=== PATIENT | female | born 1955 | race American Indian/Alaskan Native ===

== ENCOUNTER 2017-09-20 02:01 | Emergency (ER) | payer MEDICARE ==
[2017-09-20 02:09] VITALS: BP 107/64
== END 2017-09-20 05:21 | disposition left against medical advice (07) ==
LOC: ED 02:01
DX: H92.09 Otalgia, unspecified ear (principal); Z53.21 Procedure and treatment not carried out due to patient leaving prior to being seen by health care provider
CPT/HCPCS: 93005; 93010

== ENCOUNTER 2018-05-14 19:36 | Inpatient (IN) | payer MEDICARE ==
[2018-05-14] MEDS ORDERED: ASPIRIN PO ONE (20:19)
[2018-05-14 20:57] LABS: Hematocrit 39.9 % (30.3-42.9); Hemoglobin 12.6 gm/dl (10.1-14.3); Mean Corpuscular HGB Conc 32 % (30-34); Mean Corpuscular Hemoglobin 25 pg (28-32); Mean Corpuscular Volume 81 fl (79-97); Platelet Count 556 K/mm3 (140-440); Red Blood Count 4.95 M/mm3 (3.65-5.03); Red Cell Distribution Width 16.3 % (13.2-15.2)
--- NOTE | 2018-05-14 20:59 | Emergency Department Report ---
ED Chest Pain HPI - General Chief Complaint: Chest Pain Stated Complaint: CHEST PAIN Time Seen by Provider: 05/14/18 20:58 Source: patient, EMS Mode of arrival: Stretcher Limitations: Physical Limitation - History of Present Illness MD Complaint: chest pain -: This afternoon Onset: during rest Pain Location: substernal Pain Radiation: none Severity: severe Severity scale (0 -10): 10 Quality: heaviness, dull Consistency: constant Improves With: nothing Context: recent surgery re: diaphoresis. denies: nausea, vomting Other Symptoms: denies: cough, fever, syncope, rash Treatments Prior to Arrival: none Aspirin use within the Past 7 Days: (0) No - Related Data On Oral Contraceptives: No Home Medications Medication Instructions Recorded Confirmed Last Taken Esomeprazole Magnesium [NexIUM] 40 mg PO DAILY 10/27/13 08/06/15 08/06/15 Hydrochlorothiazide 25 mg PO DAILY 10/27/13 08/06/15 08/06/15 Simvastatin [Zocor TAB] 40 mg PO DAILY 10/27/13 08/06/15 08/06/15 Aspirin [Aspirin BABY CHEW TAB] 81 mg PO DAILY 07/31/14 08/06/15 08/06/15 Diazepam 10 mg PO BID 07/31/14 08/06/15 08/06/15 Previous Rx's Medication Instructions Recorded Last Taken Type Albuterol Sulfate [Ventolin HFA] 2 puff IH Q4H PRN #1 hfa.aer.ad 10/28/13 Rx Fluticasone Propionate [Flonase] 2 sprays NS DAILY #1 spray.susp 10/28/13 Rx Carvedilol [Coreg] 12.5 mg PO BID #60 tablet 08/10/15 Unknown Rx Allergies Allergy/AdvReac Type Severity Reaction Status Date / Time codeine AdvReac Nausea Verified 07/31/14 06:56 Heart Score - HEART Score History: Highly suspicious EKG: Non-specific Age: 45-65 Risk factors: 1-2 risk factors Troponin: 1-3x normal limit HEART Score: 6 ED Review of Systems ROS: Stated complaint: CHEST PAIN Other details as noted in HPI Comment: All other systems reviewed and negative Constitutional: denies: chills, fever Eyes: denies: eye pain ENT: denies: ear pain Respiratory: shortness of breath. denies: cough, orthopnea Cardiovascular: chest pain, palpitations, orthopnea Endocrine: no symptoms reported Gastrointestinal: denies: abdominal pain, nausea, vomiting, diarrhea Genitourinary: denies: urgency, dysuria, frequency Musculoskeletal: denies: back pain Skin: denies: rash, lesions Neurological: denies: headache, weakness, numbness Psychiatric: anxiety. denies: depression Hematological/Lymphatic: denies: easy bleeding, easy bruising ED Past Medical Hx - Past Medical History Previous Medical History?: Yes Hx Hypertension: Yes Hx Heart Attack/AMI: Yes (4 cardiac stents (last placed 2009)) Hx Arthritis: Yes Hx Psychiatric Treatment: Yes (depression) Hx Asthma: Yes - Surgical History Past Surgical History?: Yes Hx Coronary Stent: Yes (x4) Hx Appendectomy: Yes Additional Surgical History: tubal ligation, t&a, knee surgery - Social History Smoking Status: Never Smoker Substance Use Type: None - Medications Home Medications: Home Medications Medication Instructions Recorded Confirmed Last Taken Type Esomeprazole Magnesium [NexIUM] 40 mg PO DAILY 10/27/13 08/06/15 08/06/15 History Hydrochlorothiazide 25 mg PO DAILY 10/27/13 08/06/15 08/06/15 History Simvastatin [Zocor TAB] 40 mg PO DAILY 10/27/13 08/06/15 08/06/15 History Albuterol Sulfate [Ventolin HFA] 2 puff IH Q4H PRN #1 hfa.aer.ad 10/28/1307/30/14 Rx Fluticasone Propionate [Flonase] 2 sprays NS DAILY #1 spray.susp 10/28/1308/06/15 Rx Aspirin [Aspirin BABY CHEW TAB] 81 mg PO DAILY 07/31/14 08/06/15 08/06/15 History Diazepam 10 mg PO BID 07/31/14 08/06/15 08/06/15 History Carvedilol [Coreg] 12.5 mg PO BID #60 tablet 08/10/15 Unknown Rx ED Physical Exam - General Limitations: Physical Limitation General appearance: alert, in no apparent distress - Head Head exam: Present: atraumatic, normocephalic, normal inspection - Eye Eye exam: Present: normal appearance, PERRL, EOMI Pupils: Present: normal accommodation - ENT ENT exam: Present: normal exam, normal orophraynx, mucous membranes moist - Neck Neck exam: Present: normal inspection, full ROM. Absent: tenderness - Respiratory Respiratory exam: Present: normal lung sounds bilaterally. Absent: respiratory distress, wheezes, rales, rhonchi - Cardiovascular Cardiovascular Exam: Present: regular rate, normal rhythm, normal heart sounds - GI/Abdominal GI/Abdominal exam: Present: soft, normal bowel sounds, diminished bowel sounds. Absent: distended, tenderness, guarding, rebound - Rectal Rectal exam: Present: deferred - Extremities Exam Extremities exam: Present: normal inspection, full ROM, normal capillary refill - Back Exam Back exam: Present: normal inspection, full ROM. Absent: tenderness - Neurological Exam Neurological exam: Present: alert, oriented X3, CN II-XII intact - Psychiatric Psychiatric exam: Present: normal affect, normal mood - Skin Skin exam: Present: warm, dry, intact, normal color. Absent: rash ED Course Vital Signs 05/14/18 05/14/18 05/14/18 20:01 20:15 21:00 Temperature 99 F Pulse Rate 100 H 90 91 H Respiratory 25 H 25 H 18 Rate Blood Pressure 169/80 169/80 145/73 Blood Pressure 169/80 [Left] O2 Sat by Pulse 100 100 97 Oximetry 05/14/18 05/14/18 05/14/18 22:01 22:31 22:37 Temperature Pulse Rate 107 H 134 H 132 H Respiratory 39 H 38 H Rate Blood Pressure 178/87 178/87 Blood Pressure [Left] O2 Sat by Pulse 97 100 99 Oximetry 05/14/18 05/15/18 23:20 00:49 Temperature Pulse Rate 123 H Respiratory Rate Blood Pressure Blood Pressure [Left] O2 Sat by Pulse 100 Oximetry - Reevaluation(s) Reevaluation #1: 05/14/18 23:46 I discussed patient care with the hospitalist on-call Dr Mascorro. He'll admit patient for further evaluation and management. NATALIA score - Natalia Score Age > 65: (0) No Aspirin use within the Past 7 Days: (0) No 3 or more CAD Risk Factors: (0) No 2 or more Angina events in past 24 hrs: (0) No Known CAD with more than 50% Stenosis: (0) No Elevated Cardiac Markers: (1) Yes ST Deviation Greater than 0.5mm: (0) No NATALIA Score: 1 ED Medical Decision Making - Lab Data Result diagrams: 05/14/18 23:57 05/14/18 20:26 - EKG Data -: EKG Interpreted by Me EKG shows normal: sinus rhythm Rate: normal (90) - EKG Data When compared to previous EKG there are: previous EKG unavailable Interpretation: nonspecific ST-T wave marlon - Radiology Data Radiology results: report reviewed, image reviewed - Medical Decision Making Chest pain Critical Care Time: Yes Critical care time in (mins) excluding proc time.: 60 Critical care attestation.: If time is entered above; I have spent that time in minutes in the direct care of this critically ill patient, excluding procedure time. ED Disposition Clinical Impression: Difficulty breathing, NSTEMI (non-ST elevated myocardial infarction) Chest pain Qualifiers: Chest pain type: chest pain due to myocardial ischemia Ischemic chest pain type : unstable angina pectoris Qualified Code(s): I20.0 - Unstable angina CHF (congestive heart failure) Qualifiers: Heart failure type: unspecified Heart failure chronicity: acute Qualified Code( s): I50.9 - Heart failure, unspecified Disposition: DC-09 OP ADMIT IP TO THIS HOSP Is pt being admited?: Yes Does the pt Need Aspirin: Yes Condition: Fair Instructions: Chest Pain (ED) Referrals: PRIMARY CARE, [Referring] - 3-5 Days Time of Disposition: 23:49
[2018-05-14] MEDS ORDERED: NACL 0.9% 1000 ML 1,000 ML IV ONE (21:20)
[2018-05-14 21:21] LABS: BUN/Creatinine Ratio 10; Blood Urea Nitrogen 6 mg/dL (7-17); Calcium 9.1 mg/dL (8.4-10.2); Hemolysis Index 88
[2018-05-14 21:29] LABS: Basophils % (Manual) 0 % (0.0-1.8); Eosinophils % (Manual) 0 % (0.0-4.3); Total Cells Counted 100
[2018-05-14 21:31] LABS: Anisocytosis 1+; Platelet Estimate Consistent w Auto; Poikilocytosis Few
[2018-05-14 21:57] LABS: HDL Cholesterol 31 mg/dL (40-59); LDL Cholesterol,Direct 96 mg/dL (50-130)
[2018-05-14] MEDS: MORPHINE IV PRN (22:07)
--- NOTE | 2018-05-14 22:29 | XRay Report ---
FINAL REPORT EXAM: XR CHEST 1V AP HISTORY: chest pain TECHNIQUE: Single, portable chest x-ray. PRIORS: None. FINDINGS: Cardiac and mediastinal silhouette within normal limits. Lungs are hyperinflated, with probable mild interstitial change or scarring scattered bilaterally. No significant vascular congestion, focal consolidation or apparent pneumothorax. Bony thorax grossly unremarkable. IMPRESSION: 1. Findings compatible with sequelae of COPD and probable chronic interstitial lung disease. 2. No acute consolidation.
[2018-05-14] MEDS ORDERED: HEPARIN ONE (22:56)
[2018-05-14] MEDS ORDERED: HEPARIN/ 0.45% NACL-25,000 UNIT/500 ML 25,000 UNIT/500 ML BAG ONE (22:57)
--- NOTE | 2018-05-14 23:15 | Cat Scan Report ---
FINAL REPORT PROCEDURE: CT HEAD/BRAIN WO CON TECHNIQUE: Computerized tomography of the head was performed without contrast material. HISTORY: changed of condition COMPARISON: No prior studies are available for comparison. FINDINGS: Skull and scalp: Normal. Paranasal sinuses: Normal. Ventricles and subarachnoid spaces: Normal. Cerebrum: No evidence of hemorrhage, acute infarction or mass . Cerebellum and brainstem: No evidence of hemorrhage, acute infarction or mass. Vasculature: Normal. Comments: None. IMPRESSION: There is no evidence of an acute intracranial process
--- NOTE | 2018-05-14 23:22 | Cat Scan Report ---
FINAL REPORT PROCEDURE: CT ANGIO CHEST TECHNIQUE: Computerized tomographic angiography of the chest was performed after the IV injection of iodinated nonionic contrast including image processing. The image data was postprocessed using 2-dimensional multiplanar reformatted (MPR) and 3-dimensional (MIP and/or volume rendered) techniques. HISTORY: CP/SOB COMPARISON: No prior studies are available for comparison. FINDINGS: Heart and pericardium: Normal. Thoracic aorta: Mild atherosclerosis of the aorta is noted. No aneurysm or dissection.. Pulmonary vasculature: There is no evidence of pulmonary arterial emboli. Lymph nodes: No enlarged thoracic lymph nodes. Lungs: There is atelectasis and slight effusion in the right lower lung. Slight atelectasis left lower lung. Mild underlying chronic obstructive changes. The central airway is patent.. Pleural space: Mild effusion right lower lung.. Musculoskeletal structures: There is no acute osseous irregularity. Mild degenerative changes of the thoracic spine.. Upper abdominal structures: No significant abnormality. IMPRESSION: Mild COPD. Slight atelectasis bilateral lower lungs. Mild right effusion. There is no evidence of pulmonary arterial emboli.
[2018-05-14] MEDS ORDERED: LASIX ONE (23:30)
[2018-05-14] MEDS ORDERED: LASIX IV ONE (23:39)
[2018-05-14] MEDS ORDERED: HEPARIN 10,000 UNITS/10 ML IV ONE (23:40)
[2018-05-15 00:28] LABS: Hematocrit 37.7 % (30.3-42.9); Hemoglobin 12.3 gm/dl (10.1-14.3)
[2018-05-15] MEDS ORDERED: ZOFRAN ONE (00:43)
[2018-05-15 00:45] LABS: INR 0.97 (0.87-1.13)
[2018-05-15] MEDS: HEPARIN/ 0.45% NACL-25,000 UNIT/500 ML 25,000 UNIT/500 ML BAG IV SCH ×3 (00:45→23:02)
[2018-05-15 00:46] LABS: Partial Thromboplastin Time 41.2 Sec. (24.2-36.6)
[2018-05-15] MEDS ORDERED: ZOFRAN IV ONE (00:52)
[2018-05-15] MEDS ORDERED: VANCOMYCIN/NS 1 GM/250 ML 1 GM/250 ML BAG IV SCH (01:00)
[2018-05-15] MEDS ORDERED: ZOSYN/NS 4.5GM/100ML 4.5 GM/100 ML VIAL IV ONE ×2 (01:00→03:45)
[2018-05-15] MEDS ORDERED: VANCOMYCIN PHARMACY TO DOSE IV SCH (01:00)
[2018-05-15 01:09] LABS: Alanine Aminotransferase 19 units/L (7-56); Albumin 3.6 g/dL (3.9-5)
[2018-05-15] MEDS ORDERED: NITRO-BID 2% TP ONE (01:10)
[2018-05-15 01:11] LABS: Bilirubin,Direct < 0.2 mg/dL (0-0.2)
[2018-05-15] MEDS ORDERED: NITROSTAT SL PRN (01:12)
[2018-05-15] MEDS ORDERED: TYLENOL PR PRN (01:13)
[2018-05-15] MEDS ORDERED: PROVENTIL IH PRN (01:14)
[2018-05-15] MEDS: NITRO-BID 2% TP SCH ×5 (01:20→19:30)
[2018-05-15] MEDS ORDERED: VANCOMYCIN 1,750 MG in NACL 0.9% 500 ML 500 ML IV ONE (01:30)
[2018-05-15] MEDS: MORPHINE IV PRN ×3 (05:40→22:31)
[2018-05-15] MEDS ORDERED: ZOSYN/NS 3.375GM/50ML 3.375 GM/50 ML BAG IV SCH ×3 (06:00→10:00)
[2018-05-15] MEDS: ZOFRAN IV PRN (06:35)
[2018-05-15] MEDS: SOLU-Medrol IV SCH ×3 (06:44→21:56)
--- NOTE | 2018-05-15 06:50 | History and Physical Report ---
CHIEF COMPLAINT: Chest pain. HISTORY OF PRESENT ILLNESS: The patient is a 63-year-old female who states she has been having haziness and dullness in the precordial area and substernal area. Pain was constant and did not radiate, was associated with shortness of breath and diaphoresis. Pain was not affected by movement or deep breath. The patient was worried because she just had right knee surgery done and wondered whether that it is associated with chest pain. There was no history of fever or cough. The patient was evaluated and presented for admission. PAST MEDICAL HISTORY: Pertinent for COPD. Also, the patient has past history of hypertension, coronary artery disease. The patient had past medical history of arthritis, depression, and asthma. PAST SURGICAL HISTORY: Pertinent for stent placement x 4, appendectomy, tubal ligation, and right knee surgery. FAMILY HISTORY: Noncontributory. SOCIAL HISTORY: The patient does not smoke, does not drink alcohol, and does not use illicit drugs. MEDICATIONS: The patient is on Nexium 40 mg by mouth daily, hydrochlorothiazide 25 mg by mouth daily, Zocor 40 mg by mouth daily, albuterol inhaler 2 puffs every 4 hours as needed for shortness of breath, Flonase 2 sprays nasally daily, aspirin 81 mg chewable by mouth daily, diazepam 10 mg twice daily, and Coreg 12.5 mg by mouth twice daily. ALLERGIES: The patient is allergic to CODEINE. REVIEW OF SYSTEMS: CONSTITUTIONAL: There is no fever, no chills, and diaphoresis present. HEENT: There is no headache or sore throat. CARDIOVASCULAR SYSTEM: Chest pain is noted. No orthopnea. RESPIRATORY SYSTEM: Shortness of breath is present. No cough. GASTROINTESTINAL SYSTEM: There is no nausea, no vomiting, no abdominal pain, diarrhea or constipation. NEUROLOGICAL SYSTEM: There is no numbness, no dizziness, no altered mental status. MUSCULOSKELETAL SYSTEM: Pain in the right knee area where the patient was surgery noted. No joint swelling. DERMATOLOGICAL SYSTEM: There is no skin rash or itching. GENITOURINARY SYSTEM: There is no dysuria, hematuria, or flank pain. Rest of system review is normal. PHYSICAL EXAMINATION: GENERAL: At the time of exam, the patient was found to be alert, oriented x 3, and in mild distress due to shortness of breath. VITAL SIGNS: The patient's vital signs shows normal temperature, with pulse of 132, respiration 38, blood pressure 178/87, O2 sat of 99-100% on oxygen. HEENT: Exam showed pupils to be equal, round, and reactive to light and accommodation. Extraocular muscles intact. NECK: Supple with no JVD or carotid bruit. CARDIOVASCULAR SYSTEM: Show normal first and second heart sounds with no gallops or murmurs. RESPIRATORY SYSTEM: Show good air entry on both sides of the lung while the patient was on BiPAP. GASTROINTESTINAL SYSTEM: Show abdomen to be full, soft, and nontender with no organomegaly or rigidity. NEUROLOGIC: Exam shows no focal deficit. MUSCULOSKELETAL SYSTEM: Show tenderness in the right knee area where the patient just had recent surgery. DERMATOLOGICAL SYSTEM: Show surgical scar on the right knee area. Otherwise, no rashes were seen elsewhere. GENITOURINARY SYSTEM: Show no costovertebral angle tenderness. PERTINENT LABORATORY DATA AND IMAGING STUDIES: The patient has CBC done with elevated white count of 18,200, normal hemoglobin and normal hematocrit with the elevated platelet of 594,000, CBC differential show elevated segmented neutrophil of 88% and coagulation studies show elevated D-dimer of 1335.9. The patient's ABG showed low pH of 7.34, normal pCO2 of 42.3, low pO2 of 75, with O2 sat of 94%, on FiO2 of 32. The patient's chemistry shows slight decrease in sodium of 136, normal potassium, normal chloride, with unremarkable renal function test. The patient's troponin levels show elevated value of 0.147. Brain natriuretic peptide level is high with a value of 6331. Rest of chemistry is unremarkable. IMAGING STUDIES: The patient had CT angiogram of the chest done that shows mild COPD with slight atelectasis, bilateral lower lung and mild right effusion. Also, the patient has CT of the head done, without contrast that showed there is no evidence of an acute intracranial process and the patient had chest x-ray done that shows findings compatible with the sequela of COPD and probable chronic interstitial lung disease. There is no acute consolidation found. DIAGNOSES: 1. Non-ST elevation myocardial infarction. 2. Chronic obstructive pulmonary disease exacerbation. 3. Congestive heart failure exacerbation. PLAN: 1. The patient will be admitted to telemetry and will continue intravenous heparin started in the Emergency Room. The patient will have cardiac enzymes involving troponin, total CK, and CK-MB checked every 6 hours x 2 more levels. The patient will remain nothing by mouth until seen by the Weatherstrip Machine Operator and will have Cardiology consult for non-ST segment elevation myocardial infarction and congestive heart failure exacerbation. The patient will have 2D echo done this morning because of history of congestive heart failure exacerbation. 2. The patient will be on albuterol nebulizers every 6 hours as needed for shortness of breath and will be on intravenous Solu-Medrol 60 mg every 8 hours. 3. The patient will continue intravenous Zosyn 3.375 g every 8 hours and intravenous vancomycin with pharmacy to dose as ordered by the Emergency Room physician. 4. The patient will be on nitro paste 1-inch to anterior chest wall four times a day and will also be on sublingual nitroglycerin 0.4 mg every 5 minutes as needed for chest pain. 5. The patient will be on aspirin 325 mg by mouth daily and will be on intravenous Lasix 40 mg daily. 6. The patient will continue intravenous morphine 4 mg every 4 hours as ordered by the Emergency Room physician. 7. The patient will be on intravenous Zofran 4 mg every 6 hours as needed for nausea and vomiting and we will continue bilevel positive airway pressure treatment started in the Emergency Room. JOB# [id number] [facility]
[2018-05-15 07:02] LABS: Creatine Kinase MB 9.5 ng/mL (0.0-4.0)
[2018-05-15] MEDS: ASPIRIN PO SCH (10:14)
[2018-05-15] MEDS: LASIX IV SCH (10:14)
--- NOTE | 2018-05-15 10:49 | Consultation ---
History of Present Illness Consult date: 05/15/18 Consult reason: chest pain History of present illness: This is a 63 year old woman who presented with complaints of chest pain. She associates chest pain with shortness of breath and palpitations. There are no aggravating or relieving factors. Patient denies fever, coughs and congestion. Of note, patient reports a week ago she underwent right knee surgery. Chest CTA reports no evidence of pulmonary embolism. Chest x-ray reports chronic interstitial lung disease. Laboratory studies shows a WBC of 18,200. Cardiac enzymes were also measured which shows CKMB of 9.5 with a relative index of 5.9. Troponin of 0.161. 12 lead ECG shows a sinus rhythm. Patient is followed by her primary kettle loader on a regular basis. She has a history of 2 vessel coronary artery disease. A cardiac catheterization 3 years ago showed a patent stents in the proximal LAD and mid right coronary artery. Ejection fraction 50%. More recently, as part of her pre-operative cardiac workup, patient had a treadmill stress test that is documented as negative. Patient exercised greater than 6 minutes of jes protocol. Medications and Allergies Allergies Allergy/AdvReac Type Severity Reaction Status Date / Time codeine AdvReac Nausea Verified 07/31/14 06:56 Home Medications Medication Instructions Recorded Confirmed Last Taken Type Hydrochlorothiazide 25 mg PO DAILY 10/27/13 05/15/18 08/06/15 History Simvastatin [Zocor TAB] 40 mg PO DAILY 10/27/13 05/15/18 08/06/15 History Aspirin [Aspirin BABY CHEW TAB] 81 mg PO DAILY 07/31/14 05/15/18 08/06/15 History Diazepam 5 mg PO BID 07/31/14 05/15/18 08/06/15 History Metoprolol Xl [Metoprolol 100 mg PO QDAY 05/15/18 05/15/18 Unknown History SUCCINATE ER TAB] Omeprazole 40 mg PO DAILY 05/15/18 05/15/18 Unknown History Active Meds: Active Medications Acetaminophen (Tylenol) 650 mg UT Q4H PRN PRN Reason: Headache Albuterol (Proventil) 2.5 mg IH Q6HRT PRN PRN Reason: Shortness Of Breath Aspirin (Aspirin) 325 mg PO QDAY [facility] Last Admin: 05/15/18 10:14 Dose: Not Given Furosemide (Lasix) 40 mg IV DAILY [facility] Last Admin: 05/15/18 10:14 Dose: Not Given Heparin Sodium/Sodium Chloride (Heparin/ 0.45% Nacl-25,000 Unit/500 Ml) 25,000 unit in 500 mls @ 20 mls/hr IV TITRATE [facility]; Protocol Last Admin: 05/15/18 08:19 Dose: 1,150 units/hr, 23 mls/hr Vancomycin HCl 1,250 mg/ (Sodium Chloride) 275 mls @ 166.667 mls/hr IV Q12H [facility] Piperacillin Sod/Tazobactam Sod (Zosyn/Ns 3.375gm/50ml) 3.375 gm in 50 mls @ 100 mls/hr IV Q8H [facility] Last Admin: 05/15/18 10:31 Dose: Not Given Methylprednisolone Sodium Succinate (Solu-Medrol) 60 mg IV Q8HR [facility] Last Admin: 05/15/18 06:44 Dose: 60 mg Morphine Sulfate (Morphine) 4 mg IV Q4H PRN PRN Reason: Pain, Moderate (4-6) Last Admin: 05/15/18 10:28 Dose: 4 mg Nitroglycerin (Nitrostat) 0.4 mg SL .Q5MIN PRN PRN Reason: Chest Pain Nitroglycerin (Nitro-Bid 2%) 1 inch TP QIDNTG [facility]; Protocol Last Admin: 05/15/18 10:32 Dose: 1 inch Ondansetron HCl (Zofran) 4 mg IV Q6H PRN PRN Reason: Nausea And Vomiting Last Admin: 05/15/18 06:35 Dose: 4 mg Vancomycin HCl (Vancomycin Pharmacy To Dose) 1 each IV PKCONSULT [facility] Physical Examination Vital Signs Pulse Resp BP Pulse Ox 100 H 25 H 169/80 100 05/14/18 20:01 05/14/18 20:01 05/14/18 20:01 05/14/18 20:01 General appearance: no acute distress HEENT: Positive: PERRL Cardiac: Positive: Reg Rate and Rhythm Lungs: Positive: Decreased Breath Sounds Neuro: Positive: Grossly Intact Extremities: Absent: edema Results 05/14/18 23:57 05/14/18 20:26 Cardiac Enzymes 05/14/18 05/15/18 Range/Units 23:55 06:20 AST 20 (5-40) units/L CK-MB (CK-2) 9.5 H (0.0-4.0) ng/mL Coagulation 05/14/18 Range/Units 23:57 PT 13.4 (12.2-14.9) Sec. INR 0.97 (0.87-1.13) APTT 41.2 H (24.2-36.6) Sec. Lipids 05/14/18 Range/Units 20:26 Triglycerides 132 (2-149) mg/dL Cholesterol 149 (50-199) mg/dL HDL Cholesterol 31 L (40-59) mg/dL Cholesterol/HDL Ratio 4.80 % CBC 05/14/18 05/14/18 Range/Units 20:26 23:57 WBC 18.2 H (4.5-11.0) K/mm3 RBC 4.95 (3.65-5.03) M/mm3 Hgb 12.6 12.3 (10.1-14.3) gm/dl Hct 39.9 37.7 (30.3-42.9) % Plt Count 556 H 594 H (140-440) K/mm3 Comprehensive Metabolic Panel 05/14/18 05/14/18 Range/Units 20:26 23:55 Sodium 136 L (137-145) mmol/L Potassium 4.7 (3.6-5.0) mmol/L Chloride 101.3 (98-107) mmol/L Carbon Dioxide 17 L (22-30) mmol/L BUN 6 L (7-17) mg/dL Creatinine 0.6 L (0.7-1.2) mg/dL Glucose 108 H (65-100) mg/dL Calcium 9.1 (8.4-10.2) mg/dL Direct Bilirubin < 0.2 (0-0.2) mg/dL Indirect Bilirubin 0.1 mg/dL AST 20 (5-40) units/L ALT 19 (7-56) units/L Alkaline Phosphatase 225 H (35-129) units/L Total Protein 7.4 (6.3-8.2) g/dL Albumin 3.6 L (3.9-5) g/dL Assessment and Plan Chest pain CTA negative for PE Recent right knee surgery Hx of CAD Elevate troponin Hypertension
[2018-05-15] MEDS: VANCOMYCIN 1,250 MG in NACL 0.9% 250ML 250 ML IV SCH (11:30)
--- NOTE | 2018-05-15 13:03 | Event Note ---
Date: 05/15/18 63-year-old woman who is status post right knee surgery done a week ago, presented to the hospital with atypical chest pain. EKG on presentation was sinus rhythm with no acute ischemic changes. Laboratory exam was a white count of 18,000, CPK was normal at 161 but isolated mild troponin rise of 0.16. D- dimer was also elevated at 1335. A chest CT angiogram in the emergency room reported no evidence of pulmonary embolism. Cardiac consultation was requested for further chest pain assessment and the mild troponin elevation. The patient has an extensive artery disease history. A cardiac catheterization done 2-1/2 years ago August 2015, showed widely patent stents in the proximal LAD and mid right coronary artery, otherwise no significant residual lesions. Left ventricular ejection fraction was normal at 50%. Prior to her current surgery, she underwent preoperative cardiac assessment with a regular exercise ECG test reported negative at 6 minutes of Ba protocol exercise. Today, she underwent an echocardiogram which showed a severe dilated cardiomyopathy with left ventricular systolic ejection fraction at 20%, significantly reduced from 2-1/2 years ago. Also significantly, the right ventricle was also dilated and contained a small mobile echogenic mass at the apex very suspicious for a thrombus. Recommendations: Clinical presentation of atypical chest pain one week following knee surgery, with finding of a possible right ventricular thrombosis, is consistent with acute venous thromboembolism. Recommend full anticoagulation therapy, and bedside venous Doppler to assess for more proximal venous thrombosis. The etiology and chronicity of the left ventricular systolic dysfunction is uncertain, once she is stable with regards to the acute venous thromboembolism, further cardiac and coronary assessment may be indicated. We will initiate treatment with afterload reducing agents, beta blockers and oral antiplatelet therapy.
[2018-05-15 13:20] LABS: Creatine Kinase MB 9.9 ng/mL (0.0-4.0)
[2018-05-15] MEDS: ZESTRIL PO SCH (14:32)
[2018-05-15] MEDS: TOPROL XL PO SCH (14:32)
--- NOTE | 2018-05-15 16:11 | Event Note ---
Date: 05/15/18 Patient is 63 yo presents with chest pain. She had recent right knee surgery. cardiology following. Continue current management.
[2018-05-15] MEDS: ZOSYN/NS 3.375GM/50ML 3.375 GM/50 ML BAG IV SCH (21:55)
[2018-05-16] MEDS: VANCOMYCIN 1,250 MG in NACL 0.9% 250ML 250 ML IV SCH ×2 (00:01→12:44)
[2018-05-16 05:55] LABS: Hematocrit 37.6 % (30.3-42.9); Hemoglobin 11.9 gm/dl (10.1-14.3)
[2018-05-16] MEDS: ZOSYN/NS 3.375GM/50ML 3.375 GM/50 ML BAG IV SCH ×3 (05:58→22:33)
[2018-05-16] MEDS: SOLU-Medrol IV SCH ×3 (05:59→22:34)
[2018-05-16] MEDS: NITRO-BID 2% TP SCH ×4 (06:01→17:57)
--- NOTE | 2018-05-16 08:41 | Progress Note ---
Assessment and Plan Assessment and plan: Chest pain with elevated Troponin maybe NSTEMI or Unstable angina. cardiology following. On Aspirin, Plavix, heparin drip, Metoprolol Coronary artery disease s/p stents. cardiac thrombus in right ventricle Started on Heparin drip Hypertension. Monitor BP Hyponatremia COPD exacerbation. Continue solumedrol iv Leukocytosis. Blood cultures drawn, no fever, Empiric antibiotics until Sepsis ruled out Repeat CBC Asthma Obesity. I counseled her on importance of losing weight. DVT prophylaxis. On Heparin drip. Recent right knee replacement Full code status. History Interval history: Patient presented with chest pain, Less chest pain Hospitalist Physical - Physical exam Narrative exam: GEN:Not in acute distress,obese HEENT: Normocephalic, atraumatic, Neck: supple, No JVD Lungs:Clear to auscultation bilaterally, no crackles, no wheeze Heart:S1 and S2 reg, no murmurs, rubs or gallop Abd:soft, NT, non-distended, Normal BS Ext: No edema, clubbing or cyanosis Neuro:Awake,alert,oriented x 3, no focal neurological signs Psych: Normal mood - Constitutional Vitals: Temp Pulse Resp BP Pulse Ox 99.2 F 80 20 112/60 98 05/16/18 04:35 05/16/18 06:01 05/16/18 05:00 05/16/18 06:01 05/16/18 08:00 General appearance: Present: no acute distress, obese Results - Labs CBC & Chem 7: 05/17/18 04:17 05/17/18 04:17 Labs: Laboratory Last Values WBC 18.2 K/mm3 (4.5-11.0) H 05/14/18 20:26 RBC 4.95 M/mm3 (3.65-5.03) 05/14/18 20:26 Hgb 11.9 gm/dl (10.1-14.3) 05/16/18 05:10 Hct 37.6 % (30.3-42.9) 05/16/18 05:10 MCV 81 fl (79-97) 05/14/18 20:26 MCH 25 pg (28-32) L 05/14/18 20:26 MCHC 32 % (30-34) 05/14/18 20:26 RDW 16.3 % (13.2-15.2) H 05/14/18 20:26 Plt Count 542 K/mm3 (140-440) H 05/16/18 05:10 Add Manual Diff Complete 05/14/18 20: Total Counted 100 05/14/18 20:26 Seg Neuts % (Manual) 88.0 % (40.0-70.0) H 05/14/18 20:26 Band Neutrophils % 0 % 05/14/18 20:26 Lymphocytes % (Manual) 6.0 % (13.4-35.0) L 05/14/18 20:26 Reactive Lymphs % (Man) 0 % 05/14/18 20:26 Monocytes % (Manual) 6.0 % (0.0-7.3) 05/14/18 20:26 Eosinophils % (Manual) 0 % (0.0-4.3) 05/14/18 20:26 Basophils % (Manual) 0 % (0.0-1.8) 05/14/18 20:26 Metamyelocytes % 0 % 05/14/18 20:26 Myelocytes % 0 % 05/14/18 20:26 Promyelocytes % 0 % 05/14/18 20:26 Blast Cells % 0 % 05/14/18 20:26 Nucleated RBC % Not Reportable 05/14/18 20: Seg Neutrophils # Man 16.0 K/mm3 (1.8-7.7) H 05/14/18 20:26 Band Neutrophils # 0.0 K/mm3 05/14/18 20:26 Lymphocytes # (Manual) 1.1 K/mm3 (1.2-5.4) L 05/14/18 20:26 Abs React Lymphs (Man) 0.0 K/mm3 05/14/18 20:26 Monocytes # (Manual) 1.1 K/mm3 (0.0-0.8) H 05/14/18 20:26 Eosinophils # (Manual) 0.0 K/mm3 (0.0-0.4) 05/14/18 20:26 Basophils # (Manual) 0.0 K/mm3 (0.0-0.1) 05/14/18 20:26 Metamyelocytes # 0.0 K/mm3 05/14/18 20:26 Myelocytes # 0.0 K/mm3 05/14/18 20:26 Promyelocytes # 0.0 K/mm3 05/14/18 20:26 Blast Cells # 0.0 K/mm3 05/14/18 20:26 WBC Morphology Not Reportable 05/14/18 20:26 Hypersegmented Neuts Not Reportable 05/14/18 20:26 Hyposegmented Neuts Not Reportable 05/14/18 20:26 Hypogranular Neuts Not Reportable 05/14/18 20:26 Smudge Cells Not Reportable 05/14/18 20:26 Toxic Granulation Not Reportable 05/14/18 20:26 Toxic Vacuolation Not Reportable 05/14/18 20:26 Dohle Bodies Not Reportable 05/14/18 20:26 Pelger-Huet Anomaly Not Reportable 05/14/18 20:26 Octavia Rods Not Reportable 05/14/18 20:26 Platelet Estimate Consistent w auto 05/14/18 20:26 Clumped Platelets Not Reportable 05/14/18 20:26 Plt Clumps, EDTA Not Reportable 05/14/18 20:26 Large Platelets Not Reportable 05/14/18 20:26 Giant Platelets Not Reportable 05/14/18 20:26 Platelet Satelliting Not Reportable 05/14/18 20:26 Plt Morphology Comment Not Reportable 05/14/18 20:26 RBC Morphology Not Reportable 05/14/18 20:26 Dimorphic RBCs Not Reportable 05/14/18 20:26 Polychromasia Not Reportable 05/14/18 20:26 Hypochromasia Not Reportable 05/14/18 20:26 Poikilocytosis Few 05/14/18 20:26 Anisocytosis 1+ 05/14/18 20:26 Microcytosis Not Reportable 05/14/18 20:26 Macrocytosis Not Reportable 05/14/18 20:26 Spherocytes Not Reportable 05/14/18 20:26 Pappenheimer Bodies Not Reportable 05/14/18 20:26 Sickle Cells Not Reportable 05/14/18 20:26 Target Cells Not Reportable 05/14/18 20:26 Tear Drop Cells Not Reportable 05/14/18 20:26 Ovalocytes Not Reportable 05/14/18 20:26 Helmet Cells Not Reportable 05/14/18 20:26 Chanel-[place] Bodies Not Reportable 05/14/18 20:26 [place] Rings Not Reportable 05/14/18 20:26 Eloisa Cells Not Reportable 05/14/18 20:26 Bite Cells Not Reportable 05/14/18 20:26 Crenated Cell Not Reportable 05/14/18 20:26 Elliptocytes Not Reportable 05/14/18 20:26 Acanthocytes (Spur) Not Reportable 05/14/18 20:26 Rouleaux Not Reportable 05/14/18 20:26 Hemoglobin C Crystals Not Reportable 05/14/18 20:26 Schistocytes Not Reportable 05/14/18 20:26 Malaria parasites Not Reportable 05/14/18 20:26 Layo Bodies Not Reportable 05/14/18 20:26 Hem Pathologist Commnt No 05/14/18 20:26 PT 13.4 Sec. (12.2-14.9) 05/14/18 23:57 INR 0.97 (0.87-1.13) 05/14/18 23:57 APTT 41.2 Sec. (24.2-36.6) H 05/14/18 23:57 D-Dimer 1335.99 ng/mlDDU (0-234) H 05/14/18 21:54 Heparin Anti-Xa Level < 0.10 U.I./ml (0.3-0.7) L 05/16/18 05:10 POC ABG pH 7.343 (7.35-7.45) L 05/14/18 22:36 POC ABG pCO2 42.6 (35-45) 05/14/18 22:36 POC ABG pO2 75 (80-105) L 05/14/18 22:36 POC ABG HCO3 23.1 05/14/18 22:36 POC ABG Total CO2 24 05/14/18 22:36 POC ABG O2 Sat 94 05/14/18 22:36 POC ABG Base Excess -3 05/14/18 22:36 FiO2 32 % 05/14/18 22:36 Sodium 136 mmol/L (137-145) L 05/14/18 20:26 Potassium 4.7 mmol/L (3.6-5.0) 05/14/18 20:26 Chloride 101.3 mmol/L (98-107) 05/14/18 20:26 Carbon Dioxide 17 mmol/L (22-30) L 05/14/18 20:26 Anion Gap 22 mmol/L 05/14/18 20:26 BUN 6 mg/dL (7-17) L 05/14/18 20:26 Creatinine 0.6 mg/dL (0.7-1.2) L 05/14/18 20:26 Estimated GFR > 60 ml/min 05/14/18 20:26 BUN/Creatinine Ratio 10 % 05/14/18 20:26 Glucose 108 mg/dL (65-100) H 05/14/18 20:26 POC Glucose 138 (70-105) H 05/16/18 06:04 Calcium 9.1 mg/dL (8.4-10.2) 05/14/18 20:26 Total Bilirubin 0.30 mg/dL (0.1-1.2) 05/14/18 23:55 Direct Bilirubin < 0.2 mg/dL (0-0.2) 05/14/18 23:55 Indirect Bilirubin 0.1 mg/dL 05/14/18 23:55 AST 20 units/L (5-40) 05/14/18 23:55 ALT 19 units/L (7-56) 05/14/18 23:55 Alkaline Phosphatase 225 units/L (35-129) H 05/14/18 23:55 Total Creatine Kinase 179 units/L (30-135) H 05/15/18 12:26 CK-MB (CK-2) 9.9 ng/mL (0.0-4.0) H 05/15/18 12:26 CK-MB (CK-2) Rel Index 5.5 (0-4) H 05/15/18 12:26 Troponin T 0.106 ng/mL (0.00-0.029) H* D 05/15/18 12:26 NT-Pro-B Natriuret Pep 6331 pg/mL (0-900) H 05/14/18 20:26 Total Protein 7.4 g/dL (6.3-8.2) 05/14/18 23:55 Albumin 3.6 g/dL (3.9-5) L 05/14/18 23:55 Albumin/Globulin Ratio 0.9 % 05/14/18 23:55 Triglycerides 132 mg/dL (2-149) 05/14/18 20:26 Cholesterol 149 mg/dL (50-199) 05/14/18 20:26 LDL Cholesterol Direct 96 mg/dL (50-130) 05/14/18 20:26 HDL Cholesterol 31 mg/dL (40-59) L 05/14/18 20:26 Cholesterol/HDL Ratio 4.80 % 05/14/18 20:26
--- NOTE | 2018-05-16 08:47 | Progress Note ---
<RICHARD VERDUGO - Last Filed: 05/16/18 09:00> Assessment and Plan RV Apical thrombus - on IV heparin no evidence of DVT via venous duplex CTA negative for PE Cardiomyopathy, uncertain duration EF reduced to 15-20% by echo this admission Recent right knee surgery Hx of CAD [facility] 2014: patient prox LAD and mid RCA stents,EF 50%. Elevate troponin Hypertension Subjective Date of service: 05/16/18 Interval history: Patient has no complaints. She denies chest pain. Objective Vital Signs Temp Pulse Pulse Resp BP BP Pulse Ox 05/16/18 08:00 98 05/16/18 06:01 80 112/60 05/16/18 05:00 20 96 05/16/18 04:35 99.2 F 97 H 15 109/66 97 05/16/18 01:00 20 96 05/16/18 00:00 99.0 F 94 H 13 111/72 99 05/15/18 22:00 99 H 05/15/18 21:08 99 05/15/18 21:00 20 96 05/15/18 20:00 99.0 F 106 H 18 120/77 99 05/15/18 19:30 105 H 122/80 05/15/18 19:09 95 H 17 105/56 97 05/15/18 16:00 99.0 F 05/15/18 13:07 106 H 20 95 05/15/18 11:07 95 05/15/18 10:32 120 H 143/91 05/15/18 10:00 96 H 20 143/91 96 05/15/18 09:28 97 05/15/18 09:07 111 H 95 - Physical Examination General: No Apparent Distress HEENT: Positive: PERRL Cardiac: Positive: Reg Rate and Rhythm Lungs: Positive: Decreased Breath Sounds Neuro: Positive: Grossly Intact Extremities: Absent: edema - Labs and Meds Cardiac Enzymes 05/15/18 Range/Units 12:26 CK-MB (CK-2) 9.9 H (0.0-4.0) ng/mL CBC 05/16/18 Range/Units 05:10 Hgb 11.9 (10.1-14.3) gm/dl Hct 37.6 (30.3-42.9) % Plt Count 542 H (140-440) K/mm3 <ABDIAS ALFARO - Last Filed: 05/16/18 10:05> Assessment and Plan Patient seen and examined Patient denies chest pain or shortness of breath this morning 2D echo reviewed showing severe LV systolic dysfunction with regional wall motion abnormalities consistent with coronary artery disease. There is a prominent anterior papillary muscle in the right ventricle. No evidence of RV clot. CT chest is negative for PE. LE venous doppler negative for DVT Continue IV heparin and schedule for coronary angiography in am (patient already ate full breakfast tray this morning) Objective Vital Signs Temp Pulse Pulse Resp BP BP Pulse Ox 05/16/18 09:00 101 H 20 99 05/16/18 08:00 97.3 F L 98 05/16/18 06:01 80 112/60 05/16/18 05:00 20 96 05/16/18 04:35 99.2 F 97 H 15 109/66 97 05/16/18 01:00 20 96 05/16/18 00:00 99.0 F 94 H 13 111/72 99 05/15/18 22:00 99 H 05/15/18 21:08 99 05/15/18 21:00 20 96 05/15/18 20:00 99.0 F 106 H 18 120/77 99 05/15/18 19:30 105 H 122/80 05/15/18 19:09 95 H 17 105/56 97 05/15/18 16:00 99.0 F 05/15/18 13:07 106 H 20 95 05/15/18 11:07 95 05/15/18 10:32 120 H 143/91 - Labs and Meds Cardiac Enzymes 05/15/18 Range/Units 12:26 CK-MB (CK-2) 9.9 H (0.0-4.0) ng/mL CBC 05/16/18 Range/Units 05:10 Hgb 11.9 (10.1-14.3) gm/dl Hct 37.6 (30.3-42.9) % Plt Count 542 H (140-440) K/mm3
[2018-05-16] MEDS ORDERED: NACL 0.9% 500 ML 500 ML IV SCH (11:00)
[2018-05-16] MEDS: LASIX IV SCH (11:24)
[2018-05-16] MEDS: ASPIRIN PO SCH (11:24)
[2018-05-16] MEDS: TOPROL XL PO SCH (11:25)
[2018-05-16] MEDS: ZESTRIL PO SCH (11:27)
[2018-05-16] MEDS ORDERED: DIAZEPAM 5 MG PO SCH (13:15)
[2018-05-16] MEDS ORDERED: NON-FORMULARY (Simvastatin 40 MG) PO SCH (13:15)
[2018-05-16] MEDS: MORPHINE IV PRN ×2 (14:33→22:50)
[2018-05-16] MEDS: HEPARIN/ 0.45% NACL-25,000 UNIT/500 ML 25,000 UNIT/500 ML BAG IV SCH (17:56)
[2018-05-16] MEDS: PRAVACHOL PO SCH (22:33)
[2018-05-16] MEDS: VALIUM PO SCH (22:34)
[2018-05-17] MEDS: VANCOMYCIN 1,250 MG in NACL 0.9% 250ML 250 ML IV SCH (00:17)
[2018-05-17 01:49] LABS: BUN/Creatinine Ratio 24; Blood Urea Nitrogen 22 mg/dL (7-17); Calcium 8.5 mg/dL (8.4-10.2); Hemolysis Index 142
[2018-05-17 05:10] LABS: Hematocrit 34.7 % (30.3-42.9); Hemoglobin 11.3 gm/dl (10.1-14.3); Mean Corpuscular HGB Conc 33 % (30-34); Mean Corpuscular Volume 79 fl (79-97); Platelet Count 508 K/mm3 (140-440); Red Blood Count 4.39 M/mm3 (3.65-5.03); Red Cell Distribution Width 16.2 % (13.2-15.2)
[2018-05-17 05:27] LABS: BUN/Creatinine Ratio 24; Blood Urea Nitrogen 22 mg/dL (7-17); Calcium 8.4 mg/dL (8.4-10.2); Hemolysis Index 29
[2018-05-17 05:34] LABS: Mean Corpuscular Hemoglobin 26 pg (28-32)
[2018-05-17] MEDS: SOLU-Medrol IV SCH ×3 (05:42→22:11)
[2018-05-17] MEDS: ZOSYN/NS 3.375GM/50ML 3.375 GM/50 ML BAG IV SCH ×2 (05:42→22:14)
[2018-05-17] MEDS: NITRO-BID 2% TP SCH ×2 (05:53→18:51)
[2018-05-17 07:27] LABS: INR 0.96 (0.87-1.13)
[2018-05-17 07:34] LABS: Partial Thromboplastin Time 62.7 Sec. (24.2-36.6)
[2018-05-17] MEDS ORDERED: HEPARIN/NS 5000 UNIT/500ML(CATH LAB) 1,000 ML IR ONE (10:44)
[2018-05-17] MEDS ORDERED: SUBLIMAZE ONE (10:45)
[2018-05-17] MEDS ORDERED: NITROGLYCERIN SYRINGE 3 ML ONE (10:45)
[2018-05-17] MEDS ORDERED: XYLOCAINE 2% INFILTRATI ONE (10:45)
[2018-05-17] MEDS ORDERED: VERSED ONE (10:45)
[2018-05-17] MEDS ORDERED: ECOTRIN PO ONE ×2 (10:54→10:58)
[2018-05-17] MEDS ORDERED: NACL 0.9% 500 ML 500 ML ONE ×2 (11:00→11:58)
[2018-05-17] MEDS ORDERED: NACL 0.9% 50 ML ONE (11:34)
[2018-05-17] MEDS: HEPARIN 10,000 UNITS/10 ML ONE ×3 (11:40→12:25)
[2018-05-17] MEDS ORDERED: ZOFRAN ONE ×2 (12:33→13:47)
[2018-05-17] MEDS ORDERED: PLAVIX ONE (12:33)
[2018-05-17] MEDS ORDERED: ALUM-MAG HYDROX-SIMETH 200-200-20MG/5ML ONE (12:44)
--- NOTE | 2018-05-17 12:58 | Cardiac Catherization Report ---
CARDIAC CATHETERIZATION AND CORONARY ANGIOPLASTY REASON FOR PROCEDURE: The patient is a 63-year-old woman with a history of 2-vessel coronary artery disease, status post previous coronary stents in the LAD and right coronary arteries. She presented to the hospital at this time, 1 week following knee surgery with symptoms of chest pain and shortness of breath. We found a severe global dilated cardiomyopathy with left ventricular ejection fraction estimated at 15%-20% on echocardiogram. Based on the finding of severe deterioration of left ventricular function from previous assessments, she was recommended for a cardiac catheterization. PROCEDURES: 1. Left heart catheterization. 2. Selective left and right coronary angiography. 3. Left ventricle angiography. 4. Fractional flow reserve assessment of the right coronary artery. 5. Coronary angioplasty and stenting of the right coronary artery. 6. Sedation time, start 11:22, end 12:20. The patient was prepped and draped in a sterile fashion after informed consent. The right femoral artery was entered using Seldinger technique followed by placement of a 6-Ind[place] sheath. Selective left and right coronary angiography was performed using #4 right and left Crista catheters. A pigtail catheter was used for left ventricle angiography. The angiograms were reviewed. CORONARY ANGIOGRAPHY: Left ventricle end-diastolic pressure was 35, following coronary angiography. Ascending aortic pressure was 152/72. There was no significant pressure gradient on pullback across the aortic valve. The left main coronary artery was free of significant disease. A stent was visible in the proximal to mid LAD. The stented segment was widely patent. A small-caliber diagonal branch, which originated from the stented segment, contained mild ostial compromise. Otherwise, no significant residual lesions were noted in the left anterior descending system. The circumflex artery and its obtuse marginal branches contained mild luminal irregularities. The right coronary artery was dominant. This vessel also contained a stent in its mid segment. There was diffuse, in-stent restenosis of the distal third of the stent. On multiple angiographic views, the severity was about 70%. The left ventricle was moderately dilated. There was moderate left ventricular systolic dysfunction with ejection fraction estimated at 35%. There was global hypokinesis, with relative sparing of the basal segments of the left ventricle, suggesting a consideration of Takotsubo-type pattern of cardiomyopathy. CORONARY INTERVENTION: After review of the angiograms, we recommended fractional flow reserve assessment of the ischemic potential of the right coronary artery stenosis. We selected a #4 right Crista guiding catheter and advanced to the right coronary ostium. The fractional flow wire was then introduced into the right coronary vessel and maximal hyperemia was introduced into the vessel with the injection of 50-80 mcg of adenosine intracoronary. The baseline FFR was 0.92 and decreased to 0.76 on administration of maximal hyperemia. This was consistent with a lesion of ischemic potential. We then deployed a 3.5 x 30 mm Resolute drug-eluting stent, covering the entire lesional segment of the mid right coronary artery. Stent was deployed to optimal pressures. Following stenting, there was an excellent angiographic result, 0 residual stenosis and NATALIA 3 flow. The patient tolerated the procedure well and there were no complications. The catheters were removed, and the patient was returned to the post procedure unit in stable condition. CONCLUSION: 1. Two-vessel coronary artery disease. 2. Widely patent left anterior descending artery stent. 3. A 70%-75% in-stent restenosis of the right coronary artery stent. 4. Predominantly nonischemic cardiomyopathy, with left ventricular ejection fraction 35%-40%. On angiography, there is a pattern of Takotsubo cardiomyopathy. 5. Fractional flow reserve assessment of the right coronary lesion consistent with ischemic potential of 0.76. 6. Successful ad hoc angioplasty and stenting with deployment of a 3.5 x 30 mm drug-eluting stent. JOB# [id number] VIELKA/TOBY
[2018-05-17] MEDS ORDERED: NACL 0.9% 1000 ML 1,000 ML IV SCH (13:00)
--- NOTE | 2018-05-17 13:01 | Progress Note ---
Assessment and Plan Assessment and plan: Chest pain with elevated Troponin maybe NSTEMI or Unstable angina. cardiology following. On Aspirin, Plavix, heparin drip, Metoprolol For cardiac cath today Coronary artery disease s/p stents. cardiac thrombus in right ventricle apex seen on Echo Started on Heparin drip Hypertension. Monitor BP Cardiomyopathy. with EF 15-20% Hyponatremia COPD exacerbation. Continue solumedrol iv Leukocytosis WBC 26 Likely due to Steroids or SIRS Blood cultures drawn, no fever, Empiric antibiotics until Sepsis ruled out Repeat CBC May de-escalate Antibiotics Asthma Obesity. I counseled her on importance of losing weight. DVT prophylaxis. On Heparin drip. Recent right knee surgery Full code status. History Interval history: Patient presented with chest pain, Less chest pain No fever Hospitalist Physical - Physical exam Narrative exam: GEN:Not in acute distress,obese HEENT: Normocephalic, atraumatic, Neck: supple, No JVD Lungs:Clear to auscultation bilaterally, no crackles, no wheeze Heart:S1 and S2 reg, no murmurs, rubs or gallop Abd:soft, NT, non-distended, Normal BS Ext: No edema, clubbing or cyanosis Neuro:Awake,alert,oriented x 3, no focal neurological signs Psych: Normal mood - Constitutional Vitals: Temp Pulse Resp BP Pulse Ox 97.1 F L 65 19 113/55 100 05/17/18 08:00 05/17/18 08:00 05/17/18 08:00 05/17/18 08:00 05/17/18 09:57 General appearance: Present: no acute distress, obese Results - Labs CBC & Chem 7: 05/17/18 04:17 05/17/18 04:17 Labs: Laboratory Last Values WBC 26.0 K/mm3 (4.5-11.0) H 05/17/18 04:17 RBC 4.39 M/mm3 (3.65-5.03) 05/17/18 04:17 Hgb 11.3 gm/dl (10.1-14.3) 05/17/18 04:17 Hct 34.7 % (30.3-42.9) 05/17/18 04:17 MCV 79 fl (79-97) 05/17/18 04:17 MCH 26 pg (28-32) L 05/17/18 04:17 MCHC 33 % (30-34) 05/17/18 04:17 RDW 16.2 % (13.2-15.2) H 05/17/18 04:17 Plt Count 508 K/mm3 (140-440) H 05/17/18 04:17 Add Manual Diff Complete 05/14/18 20:26 Total Counted 100 05/14/18 20:26 Seg Neuts % (Manual) 88.0 % (40.0-70.0) H 05/14/18 20:26 Band Neutrophils % 0 % 05/14/18 20:26 Lymphocytes % (Manual) 6.0 % (13.4-35.0) L 05/14/18 20:26 Reactive Lymphs % (Man) 0 % 05/14/18 20:26 Monocytes % (Manual) 6.0 % (0.0-7.3) 05/14/18 20:26 Eosinophils % (Manual) 0 % (0.0-4.3) 05/14/18 20:26 Basophils % (Manual) 0 % (0.0-1.8) 05/14/18 20:26 Metamyelocytes % 0 % 05/14/18 20:26 Myelocytes % 0 % 05/14/18 20:26 Promyelocytes % 0 % 05/14/18 20:26 Blast Cells % 0 % 05/14/18 20:26 Nucleated RBC % Not Reportable 05/14/18 20:26 Seg Neutrophils # Man 16.0 K/mm3 (1.8-7.7) H 05/14/18 20:26 Band Neutrophils # 0.0 K/mm3 05/14/18 20:26 Lymphocytes # (Manual) 1.1 K/mm3 (1.2-5.4) L 05/14/18 20:26 Abs React Lymphs (Man) 0.0 K/mm3 05/14/18 20:26 Monocytes # (Manual) 1.1 K/mm3 (0.0-0.8) H 05/14/18 20:26 Eosinophils # (Manual) 0.0 K/mm3 (0.0-0.4) 05/14/18 20:26 Basophils # (Manual) 0.0 K/mm3 (0.0-0.1) 05/14/18 20:26 Metamyelocytes # 0.0 K/mm3 05/14/18 20:26 Myelocytes # 0.0 K/mm3 05/14/18 20:26 Promyelocytes # 0.0 K/mm3 05/14/18 20:26 Blast Cells # 0.0 K/mm3 05/14/18 20:26 WBC Morphology Not Reportable 05/14/18 20:26 Hypersegmented Neuts Not Reportable 05/14/18 20:26 Hyposegmented Neuts Not Reportable 05/14/18 20:26 Hypogranular Neuts Not Reportable 05/14/18 20:26 Smudge Cells Not Reportable 05/14/18 20:26 Toxic Granulation Not Reportable 05/14/18 20:26 Toxic Vacuolation Not Reportable 05/14/18 20:26 Dohle Bodies Not Reportable 05/14/18 20:26 Pelger-Huet Anomaly Not Reportable 05/14/18 20:26 Octavia Rods Not Reportable 05/14/18 20:26 Platelet Estimate Consistent w auto 05/14/18 20:26 Clumped Platelets Not Reportable 05/14/18 20:26 Plt Clumps, EDTA Not Reportable 05/14/18 20:26 Large Platelets Not Reportable 05/14/18 20:26 Giant Platelets Not Reportable 05/14/18 20:26 Platelet Satelliting Not Reportable 05/14/18 20:26 Plt Morphology Comment Not Reportable 05/14/18 20:26 RBC Morphology Not Reportable 05/14/18 20:26 Dimorphic RBCs Not Reportable 05/14/18 20:26 Polychromasia Not Reportable 05/14/18 20:26 Hypochromasia Not Reportable 05/14/18 20:26 Poikilocytosis Few 05/14/18 20:26 Anisocytosis 1+ 05/14/18 20:26 Microcytosis Not Reportable 05/14/18 20:26 Macrocytosis Not Reportable 05/14/18 20:26 Spherocytes Not Reportable 05/14/18 20:26 Pappenheimer Bodies Not Reportable 05/14/18 20:26 Sickle Cells Not Reportable 05/14/18 20:26 Target Cells Not Reportable 05/14/18 20:26 Tear Drop Cells Not Reportable 05/14/18 20:26 Ovalocytes Not Reportable 05/14/18 20:26 Helmet Cells Not Reportable 05/14/18 20:26 Chanel[place] Bodies Not Reportable 05/14/18 20:26 [place] Rings Not Reportable 05/14/18 20:26 Eloisa Cells Not Reportable 05/14/18 20:26 Bite Cells Not Reportable 05/14/18 20:26 Crenated Cell Not Reportable 05/14/18 20:26 Elliptocytes Not Reportable 05/14/18 20:26 Acanthocytes (Spur) Not Reportable 05/14/18 20:26 Rouleaux Not Reportable 05/14/18 20:26 Hemoglobin C Crystals Not Reportable 05/14/18 20:26 Schistocytes Not Reportable 05/14/18 20:26 Malaria parasites Not Reportable 05/14/18 20:26 Layo Bodies Not Reportable 05/14/18 20:26 Hem Pathologist Commnt No 05/14/18 20:26 PT 13.3 Sec. (12.2-14.9) 05/17/18 06:36 INR 0.96 (0.87-1.13) 05/17/18 06:36 APTT 62.7 Sec. (24.2-36.6) H* 05/17/18 06:36 D-Dimer 1335.99 ng/mlDDU (0-234) H 05/14/18 21:54 Heparin Anti-Xa Level 0.18 U.I./ml (0.3-0.7) L 05/16/18 12:06 POC ABG pH 7.343 (7.35-7.45) L 05/14/18 22:36 POC ABG pCO2 42.6 (35-45) 05/14/18 22:36 POC ABG pO2 75 (80-105) L 05/14/18 22:36 POC ABG HCO3 23.1 05/14/18 22:36 POC ABG Total CO2 24 05/14/18 22:36 POC ABG O2 Sat 94 05/14/18 22:36 POC ABG Base Excess -3 05/14/18 22:36 FiO2 32 % 05/14/18 22:36 Sodium 135 mmol/L (137-145) L 05/17/18 04:17 Potassium 4.1 mmol/L (3.6-5.0) 05/17/18 04:17 Chloride 97.5 mmol/L (98-107) L 05/17/18 04:17 Carbon Dioxide 24 mmol/L (22-30) 05/17/18 04:17 Anion Gap 18 mmol/L 05/17/18 04:17 BUN 22 mg/dL (7-17) H 05/17/18 04:17 Creatinine 0.9 mg/dL (0.7-1.2) 05/17/18 04:17 Estimated GFR > 60 ml/min 05/17/18 04:17 BUN/Creatinine Ratio 24 % 05/17/18 04:17 Glucose 137 mg/dL (65-100) H 05/17/18 04:17 POC Glucose 139 (70-105) H 05/17/18 06:11 Calcium 8.4 mg/dL (8.4-10.2) 05/17/18 04:17 Total Bilirubin 0.30 mg/dL (0.1-1.2) 05/14/18 23:55 Direct Bilirubin < 0.2 mg/dL (0-0.2) 05/14/18 23:55 Indirect Bilirubin 0.1 mg/dL 05/14/18 23:55 AST 20 units/L (5-40) 05/14/18 23:55 ALT 19 units/L (7-56) 05/14/18 23:55 Alkaline Phosphatase 225 units/L (35-129) H 05/14/18 23:55 Total Creatine Kinase 179 units/L (30-135) H 05/15/18 12:26 CK-MB (CK-2) 9.9 ng/mL (0.0-4.0) H 05/15/18 12:26 CK-MB (CK-2) Rel Index 5.5 (0-4) H 05/15/18 12:26 Troponin T 0.106 ng/mL (0.00-0.029) H* D 05/15/18 12:26 NT-Pro-B Natriuret Pep 6331 pg/mL (0-900) H 05/14/18 20:26 Total Protein 7.4 g/dL (6.3-8.2) 05/14/18 23:55 Albumin 3.6 g/dL (3.9-5) L 05/14/18 23:55 Albumin/Globulin Ratio 0.9 % 05/14/18 23:55 Triglycerides 132 mg/dL (2-149) 05/14/18 20:26 Cholesterol 149 mg/dL (50-199) 05/14/18 20:26 LDL Cholesterol Direct 96 mg/dL (50-130) 05/14/18 20:26 HDL Cholesterol 31 mg/dL (40-59) L 05/14/18 20:26 Cholesterol/HDL Ratio 4.80 % 05/14/18 20:26 Vancomycin Trough 27.7 ug/mL (5.0-20.0) H 05/17/18 10:58
--- NOTE | 2018-05-17 13:04 | Progress Note ---
Assessment and Plan Cardiac catheterization completed, no complications. Findings: 1. Cardiomyopathy with ejection fraction improved at 35-40%. There is relative sparing of the basal segments of the Left Ventricle, suggesting a Takotsubo-type event. 2. Two-vessel coronary artery disease with prior stents in the proximal LAD and mid right coronary. The LAD stent appears widely patent, but there was a 70 % in-stent restenosis of the right coronary artery. 3. The borderline severity right coronary lesion was assessed using FFR, following which we deployed a 3.5 mm drug-eluting stent for an FFR of 0.76. We'll continue medical therapy for her nonischemic cardiomyopathy, and underlying coronary artery disease. Plavix will be added to her regimen. We will recommend PADMA imaging for further assessment of right ventricular apical lesion, to fully exclude a possible venous system thrombus in transition. Subjective Date of service: 05/17/18 Interval history: Cardiac catheterization completed, no complications. Findings: 1. Cardiomyopathy with ejection fraction improved at 35-40%. There is relative sparing of the basal segments of the Left Ventricle, suggesting a Takotsubo-type event. 2. Two-vessel coronary artery disease with prior stents in the proximal LAD and mid right coronary. The LAD stent appears widely patent, but there was a 70 % in-stent restenosis of the right coronary artery. 3. The borderline severity right coronary lesion was assessed using FFR, following which we deployed a 3.5 mm drug-eluting stent for an FFR of 0.76. Objective Vital Signs Temp Pulse Pulse Resp Resp BP BP 05/17/18 09:57 05/17/18 08:00 97.1 F L 65 19 113/55 05/17/18 04:00 98.0 F 61 16 91/44 05/17/18 00:00 62 19 137/61 05/16/18 23:50 98.0 F 05/16/18 23:20 16 05/16/18 22:50 18 05/16/18 22:00 18 05/16/18 21:29 75 05/16/18 21:00 62 18 05/16/18 20:30 05/16/18 20:00 98.7 F 77 18 129/63 05/16/18 17:57 80 118/79 05/16/18 17:00 81 3 L 05/16/18 16:00 98.4 F 05/16/18 14:33 20 05/16/18 14:11 92 H 150/70 Pulse Ox 05/17/18 09:57 100 05/17/18 08:00 100 05/17/18 04:00 98 05/17/18 00:00 99 05/16/18 23:50 05/16/18 23:20 05/16/18 22:50 05/16/18 22:00 05/16/18 21:29 05/16/18 21:00 99 05/16/18 20:30 99 05/16/18 20:00 100 05/16/18 17:57 05/16/18 17:00 99 05/16/18 16:00 05/16/18 14:33 05/16/18 14:11 - Physical Examination General: No Apparent Distress HEENT: Positive: PERRL Neck: Positive: neck supple Cardiac: Positive: Reg Rate and Rhythm Lungs: Positive: Decreased Breath Sounds Neuro: Positive: Grossly Intact Abdomen: Positive: Soft Skin: Positive: Clear Extremities: Absent: edema - Labs and Meds Coagulation 05/17/18 Range/Units 06:36 PT 13.3 (12.2-14.9) Sec. INR 0.96 (0.87-1.13) APTT 62.7 H* (24.2-36.6) Sec. CBC 05/17/18 Range/Units 04:17 WBC 26.0 H (4.5-11.0) K/mm3 RBC 4.39 (3.65-5.03) M/mm3 Hgb 11.3 (10.1-14.3) gm/dl Hct 34.7 (30.3-42.9) % Plt Count 508 H (140-440) K/mm3 Comprehensive Metabolic Panel 05/17/18 05/17/18 Range/Units 01:14 04:17 Sodium 134 L 135 L (137-145) mmol/L Potassium 4.4 4.1 (3.6-5.0) mmol/L Chloride 96.7 L 97.5 L (98-107) mmol/L Carbon Dioxide 23 24 (22-30) mmol/L BUN 22 H 22 H (7-17) mg/dL Creatinine 0.9 0.9 (0.7-1.2) mg/dL Glucose 155 H 137 H (65-100) mg/dL Calcium 8.5 8.4 (8.4-10.2) mg/dL
[2018-05-17] MEDS ORDERED: LOPRESSOR ONE (13:25)
[2018-05-17] MEDS: ZOFRAN IV PRN (13:45)
[2018-05-17] MEDS ORDERED: NACL 0.9% 1000 ML 1,000 ML ONE (14:26)
[2018-05-17] MEDS: TOPROL XL PO SCH (14:45)
[2018-05-17] MEDS ORDERED: REGLAN ONE (16:19)
[2018-05-17] MEDS ORDERED: REGLAN IV ONE (16:24)
[2018-05-17] MEDS ORDERED: HEPARIN 10,000 UNITS/10 ML IV ONE (17:00)
[2018-05-17] MEDS ORDERED: HEPARIN/ 0.45% NACL-25,000 UNIT/500 ML 25,000 UNIT/500 ML BAG IV SCH (17:00)
[2018-05-17] MEDS: ASPIRIN PO SCH (18:50)
[2018-05-17] MEDS: VALIUM PO SCH ×2 (18:51→22:11)
[2018-05-17] MEDS: ZESTRIL PO SCH (18:51)
[2018-05-17] MEDS: LASIX IV SCH (18:51)
[2018-05-17] MEDS: MORPHINE IV PRN (20:37)
[2018-05-17] MEDS: PRAVACHOL PO SCH (22:11)
[2018-05-18] MEDS: MORPHINE IV PRN ×3 (02:23→11:20)
[2018-05-18] MEDS: NITRO-BID 2% TP SCH ×2 (05:35→11:20)
[2018-05-18] MEDS: ZOSYN/NS 3.375GM/50ML 3.375 GM/50 ML BAG IV SCH (05:36)
[2018-05-18 05:59] LABS: Hematocrit 33.6 % (30.3-42.9); Hemoglobin 10.8 gm/dl (10.1-14.3); Mean Corpuscular HGB Conc 32 % (30-34); Mean Corpuscular Volume 80 fl (79-97); Platelet Count 532 K/mm3 (140-440); Red Blood Count 4.22 M/mm3 (3.65-5.03)
[2018-05-18] MEDS ORDERED: VANCOMYCIN 1,250 MG in NACL 0.9% 250ML 250 ML IV SCH (06:00)
[2018-05-18 06:04] LABS: Mean Corpuscular Hemoglobin 26 pg (28-32)
[2018-05-18 06:46] LABS: Creatine Kinase MB 5.8 ng/mL (0.0-4.0)
[2018-05-18 06:50] LABS: BUN/Creatinine Ratio 19; Blood Urea Nitrogen 15 mg/dL (7-17); Calcium 8.2 mg/dL (8.4-10.2); Hemolysis Index 14
[2018-05-18 07:34] LABS: Band Neutrophils # (Manual) 2.4 K/mm3; Basophils % (Manual) 0 % (0.0-1.8); Eosinophils % (Manual) 0 % (0.0-4.3); Total Cells Counted 100
[2018-05-18 07:35] LABS: Anisocytosis 1+; Hypochromasia 1+; Ovalocytes Few
[2018-05-18 07:36] LABS: Platelet Estimate Appears Increased; Smudge Cells Few
[2018-05-18] MEDS ORDERED: HURRICAINE ONE 20% TOPICAL SPRAY MM NR (08:00)
--- NOTE | 2018-05-18 08:21 | XRay Report ---
AP CHEST: HISTORY: Post PCI Heart size is within normal limits. Pulmonary vessels appear slightly prominent. The lungs are clear. No evidence for infiltrate, pleural effusion or pneumothorax. The bony thorax is intact. IMPRESSION: Unremarkable AP chest.
[2018-05-18] MEDS ORDERED: SUBLIMAZE IV NR (08:30)
[2018-05-18] MEDS ORDERED: VERSED IV NR (08:30)
[2018-05-18] MEDS ORDERED: ZOFRAN ONE (08:30)
[2018-05-18] MEDS ORDERED: AMIDATE IV ONE (08:32)
[2018-05-18] MEDS ORDERED: VERSED ONE (08:32)
[2018-05-18] MEDS ORDERED: XYLOCAINE MPF 2% ONE (08:32)
[2018-05-18] MEDS ORDERED: DIPRIVAN 10 MG/ML IV ONE (08:33)
--- NOTE | 2018-05-18 09:05 | Vascular Lab Report ---
LOWER EXTREMITY VENOUS DUPLEX: REASON FOR EXAM: Pain and swelling of the lower extremities. COMMENTS ON THE RIGHT: All veins visualized are freely compressible without evidence of internal echogenicity. Flow is spontaneous and phasic throughout. A soft tissue change in the right knee area is consistent with a Rodriguez's cyst. COMMENTS ON THE LEFT: All veins visualized are freely compressible without evidence of internal echogenicity. Flow is spontaneous and phasic throughout. IMPRESSION: No evidence of acute or chronic deep venous thrombosis in either lower extremity. A soft tissue change in the right knee area is consistent with a Rodriguez's cyst.
--- NOTE | 2018-05-18 09:14 | Anesthesia Consultation ---
Anesthesia Consult and Med Hx - Airway Anesthetic Teeth Evaluation: Poor ROM Head & Neck: Adequate Mental/Hyoid Distance: Adequate Mallampati Class: Class III Intubation Access Assessment: Probably Good - Pre-Operative Health Status Proposed Anesthetic Plan: General - Pulmonary Hx Smoking: Yes Hx Asthma: Yes COPD: No Hx Pneumonia: No - Cardiovascular System Hx Hypertension: Yes Hx Heart Attack/AMI: Yes (4 cardiac stents (last placed 2009)) - Central Nervous System Hx Psychiatric Problems: Yes - Endocrine Hx End Stage Renal Disease: No
[2018-05-18] MEDS ORDERED: ASPIRIN PO SCH (09:41)
--- NOTE | 2018-05-18 09:45 | Progress Note ---
Assessment and Plan Cardiomyopathy, uncertain duration Possible stress induced i.e. takotsubo cardiomyopathy EF improved on repeat echo today to 45-50% No evidence of RV clot by PADMA Recent right knee surgery CTA chest was negative for PE LE venous doppler was negative for DVT Hx of CAD [facility] 2014: patient prox LAD and mid RCA stents,EF 50%. [facility] this admission: 70% RCA ISR s/p KARON Elevate troponin Hypertension Recommendations: Discontinue IV heparin Change aspirin to 81 mg po daily May go home cardiac roy Will set up outpatient follow-up Subjective Date of service: 05/18/18 Principal diagnosis: Chest pain Interval history: Patient is doing well. PADMA performed today showing no RV clot - no complications Objective Vital Signs Temp Pulse Pulse Pulse Pulse Resp Resp 05/18/18 09:25 74 05/18/18 09:13 76 05/18/18 08:50 110 H 18 05/18/18 08:45 110 H 22 05/18/18 08:40 86 20 05/18/18 05:35 68 05/18/18 04:00 97.8 F 71 18 05/18/18 00:00 98.1 F 76 20 05/17/18 22:00 89 76 05/17/18 21:41 05/17/18 20:00 98.3 F 89 22 05/17/18 16:38 98.6 F 05/17/18 16:15 126 H 22 05/17/18 16:00 84 20 05/17/18 15:45 92 H 14 05/17/18 15:40 93 H 18 05/17/18 15:35 83 21 05/17/18 15:30 73 22 05/17/18 15:15 93 H 15 05/17/18 14:59 86 21 05/17/18 14:45 92 H 21 05/17/18 14:35 90 16 05/17/18 14:15 101 H 14 05/17/18 13:45 91 H 19 05/17/18 13:30 88 19 05/17/18 13:10 81 16 05/17/18 12:55 96 H 18 05/17/18 09:57 Resp BP BP BP BP Pulse Ox Pulse Ox 05/18/18 09:25 20 156/67 05/18/18 09:13 16 146/65 05/18/18 08:50 174/74 100 05/18/18 08:45 146/71 100 05/18/18 08:40 147/76 100 05/18/18 05:35 156/69 05/18/18 04:00 156/96 99 05/18/18 00:00 152/71 99 05/17/18 22:00 99 05/17/18 21:41 99 05/17/18 20:00 179/91 99 05/17/18 16:38 05/17/18 16:15 158/102 99 05/17/18 16:00 153/86 174/84 98 05/17/18 15:45 176/89 95 05/17/18 15:40 162/86 95 05/17/18 15:35 168/75 92 05/17/18 15:30 161/74 92 05/17/18 15:15 170/88 94 05/17/18 14:59 167/93 93 05/17/18 14:45 178/94 97 05/17/18 14:35 194/91 94 05/17/18 14:15 194/83 99 05/17/18 13:45 187/104 100 05/17/18 13:30 205/105 100 05/17/18 13:10 200/108 100 05/17/18 12:55 194/94 100 05/17/18 09:57 100 Pulse Ox 05/18/18 09:25 100 05/18/18 09:13 100 05/18/18 08:50 05/18/18 08:45 05/18/18 08:40 05/18/18 05:35 05/18/18 04:00 05/18/18 00:00 05/17/18 22:00 05/17/18 21:41 05/17/18 20:00 05/17/18 16:38 05/17/18 16:15 05/17/18 16:00 05/17/18 15:45 05/17/18 15:40 05/17/18 15:35 05/17/18 15:30 05/17/18 15:15 05/17/18 14:59 05/17/18 14:45 05/17/18 14:35 05/17/18 14:15 05/17/18 13:45 05/17/18 13:30 05/17/18 13:10 05/17/18 12:55 05/17/18 09:57 - Physical Examination General: No Apparent Distress HEENT: Positive: PERRL Neck: Positive: neck supple Cardiac: Positive: Reg Rate and Rhythm Lungs: Positive: Normal Exam Neuro: Positive: Grossly Intact Abdomen: Positive: Soft Skin: Positive: Clear Extremities: Absent: edema - Labs and Meds Cardiac Enzymes 05/18/18 Range/Units 05:23 CK-MB (CK-2) 5.8 H (0.0-4.0) ng/mL CBC 05/18/18 Range/Units 05:23 WBC 21.8 H (4.5-11.0) K/mm3 RBC 4.22 (3.65-5.03) M/mm3 Hgb 10.8 (10.1-14.3) gm/dl Hct 33.6 (30.3-42.9) % Plt Count 532 H (140-440) K/mm3 Comprehensive Metabolic Panel 05/18/18 Range/Units 05:23 Sodium 139 (137-145) mmol/L Potassium 4.2 (3.6-5.0) mmol/L Chloride 101.1 (98-107) mmol/L Carbon Dioxide 27 (22-30) mmol/L BUN 15 (7-17) mg/dL Creatinine 0.8 (0.7-1.2) mg/dL Glucose 144 H (65-100) mg/dL Calcium 8.2 L (8.4-10.2) mg/dL
[2018-05-18] MEDS ORDERED: BABY ASPIRIN PO SCH (10:00)
[2018-05-18] MEDS ORDERED: PLAVIX PO SCH (10:00)
[2018-05-18] MEDS: SOLU-Medrol IV SCH (11:17)
[2018-05-18] MEDS: LASIX IV SCH (11:18)
[2018-05-18] MEDS: ZESTRIL PO SCH (11:19)
[2018-05-18] MEDS: TOPROL XL PO SCH (11:19)
[2018-05-18] MEDS: VALIUM PO SCH (11:20)
--- NOTE | 2018-05-18 11:54 | Discharge Summary ---
Providers - Providers Date of Admission: 05/15/18 01:02 Date of discharge: 05/18/18 Attending physician: DANE ALVARADO 05/15/18 06:00 Consult to Physician [CONS] Routine Comment: Consulting Provider: LIZA NGUYEN Physician Instructions: Reason For Exam: NSTEMI 05/17/18 Consult to Cardiac Rehabilitation [CONS] Routine Reason For Exam: post pci Primary care physician: ANDREI GRULLON Hospitalization Condition: Fair Disposition: DC-01 TO HOME OR SELFCARE - Discharge Diagnoses (1) Chest pain Status: Acute Qualifiers: Chest pain type: chest pain due to myocardial ischemia Ischemic chest pain type: unstable angina pectoris Qualified Code(s): I20.0 - Unstable angina (2) NSTEMI (non-ST elevated myocardial infarction) Status: Acute (3) HLD (hyperlipidemia) Status: Chronic Qualifiers: Hyperlipidemia type: unspecified hyperlipidemia Qualified Code(s): E78.5 - Hyperlipidemia, unspecified (4) HTN (hypertension) Status: Chronic Qualifiers: Hypertension type: essential hypertension Qualified Code(s): I10 - Essential (primary) hypertension (5) Cardiomyopathy Status: Acute Core Measure Documentation - Palliative Care Palliative Care/ Comfort Measures: Not Applicable - Core Measures Any of the following diagnoses?: stroke - Acute GA Discharge Requirements Aspirin at discharge: Yes AUTUMN/ARB for LVSD if EF <40%: Yes Beta lonny at discharge: Yes Statin for LDL = or >100 mg/dl on DC: Yes Exam - Constitutional Vitals: Temp Pulse Resp BP Pulse Ox 98.2 F 71 20 153/80 100 05/18/18 08:00 05/18/18 11:19 05/18/18 09:25 05/18/18 11:19 05/18/18 09:25 Plan Activity: advance as tolerated Diet: low fat, low cholesterol, low salt Additional Instructions: 1.Follow up with PCP in 1 week. 2.Follow up with Dr. Nguyen in 1 week Follow up with: PRIMARY CARE, [Referring] - 3-5 Days Prescriptions: Lisinopril [Zestril TAB] 5 mg PO QDAY #30 tablet Prednisone [predniSONE 5 mg (6-Day Pack, 21 Tabs)] 5 mg PO .TAPER #1 tab.ds.pk
[2018-05-18 13:11] VITALS: BP 153/81
--- NOTE | 2018-05-18 13:17 | Anesthesia Day of Surgery ---
Anesthesia Day of Surgery - Day of Surgery Patient Examined: Yes Patient H&P Reviewed: Yes Patient is NPO: Yes Beta Blockers: Yes Cardiac Clearance: Yes Pulmonary Clearance: No
[2018-05-18] MEDS ORDERED: HEPARIN SUB-Q SCH (14:00)
--- NOTE | 2018-05-18 14:13 | Query- Heart Failure ---
Yen Patel____Joaquim Date:__05/18/2018 Weight Tester/CDS:__Anahy/Jose D Phone#:__[phone] Exercise your independent professional judgment when responding to query. Questions asked do not imply a particular answer is desired or expected. We greatly appreciate your clarification on this issue. Clinical Documentation States: 63 Year old female was admitted on 05/14/2018 for chest pain. The Cardiology consult note stated "Today, she underwent an echocardiogram which showed a severe dilated cardiomyopathy with left ventricular systolic ejection fraction at 20%, significantly reduced from 2-1/2 years ago. Also significantly, the right ventricle was also dilated and contained a small mobile echogenic mass at the apex very suspicious for a thrombus." Clinical Findings Show: BNP:___[id number] TX: IV Lasix If possible, Please Clarify if you mean: Acuity: [ ] Acute [ ] Acute on Chronic [ ] Chronic Type: [ ] Systolic Heart Failure [ ] Diastolic Heart Failure [ ] Combined Heart Failure [ x] Other:_Patient does not have CHF. See cardiology notes. Present on Admission: [ ] Yes (Y) [ ] Clinically undeterminable (W) [x ] No (N) Please also document response in your Progress Notes and/or Discharge Summary and indicate if the condition was present on admission. ALESHIA
[2018-05-19] MEDS ORDERED: VANCOMYCIN 1,250 MG in NACL 0.9% 250ML 250 ML IV SCH (10:00)
== END 2018-05-18 14:34 | disposition home or self-care (01) | DRG 246 ==
LOC: ED 19:36 → 4A 05-15 01:02 → IMCU 05-15 06:25
PROVIDERS: ADMIT Internal Medicine; ATTEND Internal Medicine
PROC: 5A09357 Assistance with Respiratory Ventilation, Less than 24 Consecutive Hours, Continuous Positive Airway Pressure (ICD-10-PCS; 2018-05-14)
PROC: 4A023N7 Measurement of Cardiac Sampling and Pressure, Left Heart, Percutaneous Approach (ICD-10-PCS; 2018-05-15)
PROC: 027034Z Dilation of Coronary Artery, One Artery with Drug-eluting Intraluminal Device, Percutaneous Approach (ICD-10-PCS; principal; 2018-05-17)
PROC: B2110ZZ Fluoroscopy of Multiple Coronary Arteries using High Osmolar Contrast (ICD-10-PCS; 2018-05-17)
PROC: 4A033R1 Measurement of Arterial Saturation, Peripheral, Percutaneous Approach (ICD-10-PCS; 2018-05-17)
PROC: B2151ZZ Fluoroscopy of Left Heart using Low Osmolar Contrast (ICD-10-PCS; 2018-05-17)
DX: T82.855A Stenosis of coronary artery stent, initial encounter (principal); I21.4 Non-ST elevation (NSTEMI) myocardial infarction; I50.23 Acute on chronic systolic (congestive) heart failure; J44.1 Chronic obstructive pulmonary disease with (acute) exacerbation; E87.1 Hypo-osmolality and hyponatremia; I25.110 Atherosclerotic heart disease of native coronary artery with unstable angina pectoris; I42.0 Dilated cardiomyopathy; J84.9 Interstitial pulmonary disease, unspecified; I11.0 Hypertensive heart disease with heart failure; E78.5 Hyperlipidemia, unspecified; Y83.9 Surgical procedure, unspecified as the cause of abnormal reaction of the patient, or of later complication, without mention of misadventure at the time of the procedure; E66.9 Obesity, unspecified; F32.9 Major depressive disorder, single episode, unspecified; Z88.6 Allergy status to analgesic agent; Z79.82 Long term (current) use of aspirin; Z98.51 Tubal ligation status; Z68.33 Body mass index [BMI] 33.0-33.9, adult; Z71.3 Dietary counseling and surveillance; Z87.891 Personal history of nicotine dependence; Y92.89 Other specified places as the place of occurrence of the external cause; I25.2 Old myocardial infarction; Z96.651 Presence of right artificial knee joint
CPT/HCPCS: 36415; 70450; 71045; 71275; 80048; 80061; 80074; 80202; 82550; 82553; 82803; 82962; 83880; 84484; 85007; 85014; 85018; 85025; 85027; 85049; 85347; 85379; 85520; 85610; 85730; 87040; 92928; 93005; 93010; 93306; 93312; 93320; 93325; 93458; 93571; 93970; 94760; 96365; 96367; 96374; 96375; A9270-GY; C1769; C1874; C1887; C1894; C9600; J0153; J1644; J1940; J2250; J2270; J2405; J2543; J2704; J2765; J2920; J3010; J3370; J7030; J7040; J7050; Q9967